=== PATIENT | male | born 1960 | race Caucasian/White ===

== ENCOUNTER 2020-05-01 06:50 | Emergency (ER) | payer OTHER, SELFPAY ==
[2020-05-01 06:55] VITALS: BP 128/54; PULSE 73; RESP 16; TEMP 36.6; O2SAT 99; BMI 20.9
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
[2020-05-01] MEDS: CYCLOBENZAPRINE 10 MG TABLET PO (08:11)
[2020-05-01] MEDS: HYDROCODONE/ACET 5/325 TABLET 2 TAB PO (08:11)
[2020-05-01 09:35] VITALS: BP 123/68; PULSE 74; RESP 12; O2SAT 98
[2020-05-01] MEDS: LIDOCAINE PATCH 1 EACH ADH..PATCH TOP (09:36)
[2020-05-01 09:43] VITALS: BP 123/68; PULSE 74; RESP 12; O2SAT 98
== END 2020-05-01 09:44 | disposition home or self-care (01) ==
PROVIDERS: Emergency Provider Emergency Medicine
DX: S39.012A Strain of muscle, fascia and tendon of lower back, initial encounter (principal); X50.9XXA Other and unspecified overexertion or strenuous movements or postures, initial encounter
CPT/HCPCS: 72100; 99283; 99284

== ENCOUNTER → 2023-05-06 18:38 | Outpatient (CLI) | payer OTHER, SELFPAY ==
--- NOTE | 2023-05-06 18:43 | DI.RAD.S_ITS ---
PROCEDURE: XR LUMBAR SPINE MIN 4V INDICATIONS: Lumbar back pain TECHNIQUE: 5 views of the lumbar spine were acquired, including bilateral oblique views. COMPARISON: [facility], CR, XR LUMBAR SPINE 2-3V, 05/01/2020, 7:45. FINDINGS: Bones: 5 nonrib-bearing vertebrae are present. There is normal bony alignment. No vertebral body compression fractures. No suspicious bony lesions. Mild disc space narrowing and facet sclerosis noted in the lower lumbar spine Soft tissues: Moderate fecal debris throughout the colon without obstruction. Oblique images: No pars defects. IMPRESSION: Mild degenerative disc disease and arthropathy Approved by: Brian Nettles M.D. on 05/06/2023 at 19:31
== END ==
PROVIDERS: Referring Provider Nurse Practitioner Family; Visit Provider Nurse Practitioner Family
DX: M54.50 Low back pain, unspecified (principal); M51.36 Other intervertebral disc degeneration, lumbar region; M47.816 Spondylosis without myelopathy or radiculopathy, lumbar region
CPT/HCPCS: 72110